=== PATIENT | female | born 1990 | race Caucasian/White ===

== ENCOUNTER 2020-06-11 00:20 | Inpatient (IN) ==
[2020-06-11] MEDS ORDERED: LACTATED RINGER'S 1,000 ML IV PRN (00:57)
[2020-06-11] MEDS ORDERED: OXYTOCIN 30 UNITS/500 ML BAG IV PRN ×2 (00:57→06:30)
--- NOTE | 2020-06-11 01:03 | Labor Progress Brief Note ---
Date of Service June 11, 2020 Subjective Painful ctx Q5m. Checked by RN on arrival, 5-6cm, 90% -1 with bulging bag. Patient wishes natural childbirth and declines epidural at this time. FHT Cat 1, [place] Q5-6m. Covid pending, rapid ordered. Results & Data ([facility]) Vital Signs (Past 12 Hours) Vital Signs Temp Pulse BP 06/11/20 00:44 57 L 138/90 06/11/20 00:38 98.1 F 60 143/98 H Coding Level of Care Code None
[2020-06-11 01:46] LABS: Albumin Level 2.5 gm/dl (3.4-5.0); BUN Creatinine Ratio 15.6 (10-20); Calcium 8.9 mg/dl (8.5-10.1); Creatinine Clr Calc Pharmacy 194.2 ml/min; Est GFR (African American) 144.2; Est GFR (Non-African American) 124.4; Uric Acid 5.9 mg/dl (2.6-7.2)
[2020-06-11 01:49] LABS: Albumin Globulin Ratio 0.6 (0.9-2); Bilirubin,Total 0.2 mg/dl (0.2-1); Globulin 3.9 gm/dl (2.5-4.0); Total Protein 6.4 gm/dl (6.4-8.2)
[2020-06-11 01:52] LABS: Hematocrit (blood only) 34.8 % (37-47); Hemoglobin 12.2 g/dL (12.0-16.0); Mean Corpuscular Hgb Conc 35.1 g/dL (32-36); Mean Corpuscular Volume 88.3 fL (80-100); Mean Platelet Volume 13.6 fL (7.4-10.4); Platelet Count 123 K/uL (130-400); RDW Coefficient of Variation 13.4 % (11.5-14.5); RDW Standard Deviation 43.5 fL (36.4-46.3); Red Blood Count 3.94 M/uL (4.2-5.4); White Blood Count 8.88 K/uL (4.8-10.8)
[2020-06-11 01:53] LABS: Platelet Estimate Normal (Normal)
[2020-06-11 01:54] LABS: Creatinine Urine Random 15.1 mg/dl; Protein Creatinine Ratio Urine 0.6 (0-0.2); Total Protein Urine Random 8.2 mg/dl (0-11.9)
--- NOTE | 2020-06-11 04:23 | Labor Progress Brief Note ---
Date of Service June 11, 2020 Subjective Tolerating contractions with breathing methods. Declines epidural. Patient requesting AROM. Assessment & Plan (1) Normal labor and delivery: continue current mgmt. Admission and Anticipated Discharge Date Admission Date: June 11, 2020 Physical Exam Physical Exam: /-1 AROM clear fluid FHT Cat 1 [place] Q4-5 Results & Data ([facility]) Vital Signs (Past 12 Hours) Vital Signs Temp Pulse Resp BP 06/11/20 03:15 98.6 F 06/11/20 03:06 60 139/94 06/11/20 01:00 06/11/20 00:57 98.1 F 06/11/20 00:44 57 L 138/90 06/11/20 00:38 98.1 F 60 143/98 H Coding Level of Care Code None Diagnoses Normal labor and delivery O80
[2020-06-11] MEDS ORDERED: fentaNYL citrate 100 MCG/2 ML VIAL ONE (05:39)
[2020-06-11] MEDS ORDERED: BUPIVACAINE 0.25% 30 ML VIAL ONE (05:39)
[2020-06-11] MEDS ORDERED: ePHEDrine sulfate 50 MG/ML AMP ONE (05:39)
[2020-06-11] MEDS ORDERED: fentaNYL 2MCG/ML ROPIVACAINE 1.25MG/ML 100 ML BAG EPI ONE (05:40)
[2020-06-11] MEDS ORDERED: NALOXONE HCL 0.4 MG/1 ML VIAL/CARP IV PRN (05:47)
[2020-06-11] MEDS ORDERED: diphenhydrAMINE 50 MG/ML VIAL IV PRN (05:47)
[2020-06-11] MEDS ORDERED: ONDANSETRON INJ 2 MG/ML 2 ML VIAL IV PRN (05:47)
[2020-06-11] MEDS ORDERED: ePHEDrine sulfate 50 MG/ML AMP IV PRN (05:47)
[2020-06-11] MEDS ORDERED: fentaNYL 2MCG/ML ROPIVACAINE 1.25MG/ML 100 ML BAG EPI PRN (05:47)
[2020-06-11] MEDS ORDERED: NALOXONE HCL 1 MG in SODIUM CHLORIDE 0.9% 1000ML 1,000 ML IV PRN (05:47)
--- NOTE | 2020-06-11 05:49 | Anesthesiology Consultation ---
Date of Service June 11, 2020 Assessment & Plan (1) Encounter for pre-operative examination: Chart Review Chart Review: Patient NOT seen in Pre Admission Testing and Acceptable Risk for Labor Epidural upon arrival pt had progressed to pushing so no neuraxial offered Consults Requested none History Height/Weight Height: 5 ft 7 in Weight: 120.656 kg Allergies Allergy/AdvReac Type Severity Reaction Status Date / Time No Known Allergies Allergy Verified 06/08/20 15:56 Medications Home Medications Medication Instructions Recorded Confirmed Last Taken prenat.vits,mena,bvb-bcmd-ggesv 1 tab PO DAILY 11/02/19 06/11/20 06/10/20 08:00 sertraline 50 mg tablet 50 mg PO DAILY 11/02/19 06/11/20 06/10/20 08:00 Active Medications Generic Name Dose Route Start Last Admin Trade Name Freq PRN Reason Stop Dose Admin Lactated Ringer's 1,000 mls @ 125 mls/hr 06/11/20 00:57 06/11/20 01:58 Lr IV 06/13/20 00:56 999 mls/hr .Q8H PRN Administration L&D Protocol Protocol Past Medical History Medical History History of chicken pox Large for dates affecting management of mother (spontaneous vaginal delivery) 2016 Exercise / Class Metabolic Activity II 4-5 Yardwork/Stairs/Walk up hill Past Family History Family History Grandmother (Paternal) Diabetes Heart disease Grandfather (Maternal) Heart disease Grandfather (Maternal) Heart disease Grandfather (Paternal) Heart disease Mother Hypertension Father Hypertension Aunt Ovarian cancer Blind Intellectual disability Past Surgical History Surgical History S/P appendectomy S/P dilatation and curettage S/P tonsillectomy S/P wisdom tooth extraction Past Anesthesia History No Hx of Anesthesia Complications and No Family Hx of Anesthesia Complications History of PONV No Hx of PONV and No Hx of Motion Sickness Social History Smoking Status: Never smoker Hx Alcohol Use: No Hx Substance Use: No Physical Exam Vital Signs Last Vital Signs Temp 37.0 C 06/11/20 04:21 Pulse 60 06/11/20 03:06 Resp 20 06/11/20 03:15 BP 139/94 06/11/20 03:06 Testing Laboratory Results 06/11/20 01:06 06/11/20 01:11
--- NOTE | 2020-06-11 06:15 | Delivery Summary ---
Vaginal Delivery Summary Date of Service June 11, 2020 Vaginal Delivery Summary DIAGNOSES: 1. Abel intrauterine at 38w6d gestation. 2. Spontaneous onset of labor. 3. Group B Streptococcus Neg. PROCEDURE: Spontaneous vaginal delivery and repair of periurethral laceration. SURGEON: Fany Warren MD. LOST CHARGE CARD CLERK: None. ESTIMATED BLOOD LOSS: 350 mL. COMPLICATIONS: None. PLACENTA: Spontaneous and intact with a 3-vessel cord. DISPOSITION: Stable to labor and delivery. DESCRIPTION: The patient pushed well and brought the head to in OA position. The infant's head was allowed to deliver with contraction force and no further active pushing, with the perineum protected during this time. The shoulders delivered easily with a maternal pushing effort. There was no nuchal cord. The left shoulder was anterior. The shoulders and body delivered without any difficulty, and the infant was placed on the maternal abdomen. It was vigorous and moving all extremities, and making respiratory efforts. The cord was doubly clamped by the MD and then cut by the FOB. The placenta delivered spontaneously and was noted to be intact and with a 3VC. The cervix, vagina and perineum were examined and were found to have a 1st degree abrasion at the perineum which was hemostatic and did not require repair; there was a periurethral laceration that was briskly bleeding even after 5min direct pressure, and this was repaired with a figure of eight suture of 3-0 vicryl after infiltration with 1% plain lidocaine. A red rubber catheter was used to empty the bladder after repair to confirm urethral patency. The fundus was firm and lochia minimal immediately after delivery. [facility] Vaginal Delivery Charge Vaginal Delivery Codes: 33551 global code for the antepartum, delivery, and post-
[2020-06-11] MEDS ORDERED: LACTATED RINGER'S 1,000 ML IV SCH (06:30)
[2020-06-11] MEDS ORDERED: ACETAMINOPHEN 325 MG TAB PO PRN (06:30)
[2020-06-11] MEDS ORDERED: SUPERCREAM 0.870% 15 GM JAR EXT PRN (06:30)
[2020-06-11] MEDS ORDERED: HYDROCORTISONE ACETATE 25 MG SUPP PR PRN (06:30)
[2020-06-11] MEDS ORDERED: oxyCODONE/ACETAMINOPHEN 5mg/325mg TAB PO PRN (06:30)
[2020-06-11] MEDS ORDERED: BENZOCAINE 20% AER SPR 82.5 GM CAN EXT PRN (06:30)
[2020-06-11] MEDS ORDERED: DIPHTHERIA/TETANUS/PERTUSSIS 0.5 ML SYR/VIAL IM ONE (06:30)
[2020-06-11] MEDS: IBUPROFEN 600 MG TAB PO PRN ×3 (07:55→21:25)
[2020-06-11] MEDS: SERTRALINE HCL 100 MG TABLET PO SCH (07:56)
[2020-06-11] MEDS: PRENATAL VITAMIN 1 TAB PO SCH (07:56)
[2020-06-11] MEDS: DOCUSATE SODIUM 100 MG CAP PO SCH ×2 (07:56→21:24)
[2020-06-11] MEDS ORDERED: SERTRALINE HCL 50 MG TABLET PO SCH (09:00)
[2020-06-12 06:57] LABS: Hematocrit (blood only) 31.5 % (37-47); Hemoglobin 10.8 g/dL (12.0-16.0); Mean Corpuscular Hemoglobin 30.6 pg (25-34); Mean Corpuscular Hgb Conc 34.3 g/dL (32-36); Mean Corpuscular Volume 89.2 fL (80-100); Mean Platelet Volume 13.1 fL (7.4-10.4); Platelet Count 119 K/uL (130-400); Platelet Estimate Decreased (Normal); RDW Coefficient of Variation 13.8 % (11.5-14.5); RDW Standard Deviation 44.6 fL (36.4-46.3); Red Blood Count 3.53 M/uL (4.2-5.4); White Blood Count 10.24 K/uL (4.8-10.8)
[2020-06-12] MEDS: SERTRALINE HCL 100 MG TABLET PO SCH (08:24)
[2020-06-12] MEDS: PRENATAL VITAMIN 1 TAB PO SCH (08:24)
[2020-06-12] MEDS: DOCUSATE SODIUM 100 MG CAP PO SCH (08:24)
--- NOTE | 2020-06-12 09:15 | Obstetrical Progress Note ---
Date of Service June 12, 2020 Assessment & Plan (1) Encounter for supervision of normal in multigravida, antepartum: 30 s/p . Doing well. Requesting discharge. Subjective Ambulation: ambulating normally Voiding: no voiding problems Passing Gas:: Yes Diet Tolerance:: regular diet Lochia:: Moderate Feeding Type:: bottle feeding Physical Exam Constitutional WD/WN, vitals as above Respiratory normal respiratory effort; no respiratory distress and no labored breathing Gastrointestinal (Abdomen) Inspection/Auscultation: abdomen normal to inspection; abdomen not distended Percussion/Palpation: abdomen soft; abdomen nontender, no guarding and abdomen not rigid Genitourinary OB Exam Abdomen: + fundal height Fundus: + firm and + relation to umbilicus (Below); not tender and not boggy Results & Data ([facility]) Vital Signs (Past 12 Hours) Vital Signs Temp Pulse Resp BP 06/12/20 04:40 36.6 C 65 18 129/87 06/12/20 00:50 36.5 C 79 18 131/83
[2020-06-12] MEDS: IBUPROFEN 600 MG TAB PO PRN (14:07)
== END 2020-06-12 13:30 | disposition home or self-care (01) | DRG 807 ==
LOC: OPB 00:20 → 4S1 00:23 → 4S2 09:00